=== PATIENT | male | born 1970 | race African-American/Black ===

== ENCOUNTER 2018-03-09 07:34 | Emergency (ER) | payer SELFPAY ==
[~2018-03-09] VITALS: Ht 185.4 cm; Wt 108.9 kg
[2018-03-09] MEDS ORDERED: NS IV 1000 ML 1,000 ML IV ONE (07:45)
[2018-03-09] MEDS ORDERED: raNItidine 50 MG/2 ML INJ (ZANTAC) IV ONE (07:45)
[2018-03-09] MEDS ORDERED: ONDANSETRON 4 MG/2 ML (SDV) Z0FRAN IVP ONE (07:45)
[2018-03-09] MEDS ORDERED: fentaNYL INJECTION 100 MCG/2 ML AMP IVP ONE ×2 (07:45→10:00)
[2018-03-09 08:56] LABS: BASOPHILS % (AUTO) 0 % (0-10); EOSINOPHILS # (AUTO) 0.1 10^3/uL (0.0-0.3); EOSINOPHILS % (AUTO) 2 % (0-10); HEMATOCRIT 41 % (40-54); HEMOGLOBIN 13.5 G/DL (13.3-17.7); LYMPHOCYTES # (AUTO) 0.6 X 10^3 (1.0-4.0); LYMPHOCYTES % (AUTO) 10 % (12-44); MEAN CORPUSCULAR HEMOGLOBIN 30 PG (25-34); MEAN CORPUSCULAR HGB CONC 33 G/DL (32-36); MEAN CORPUSCULAR VOLUME 90 FL (80-99); MEAN PLATELET VOLUME 10.2 FL (7.4-10.4); MONOCYTES # (AUTO) 0.3 X 10^3 (0.0-1.0); MONOCYTES % (AUTO) 5 % (0-12); NEUTROPHILS # (AUTO) 5.3 X 10^3 (1.8-7.8); NEUTROPHILS % (AUTO) 83 % (42-75); PLATELET COUNT 173 10^3/uL (130-400); RED BLOOD COUNT 4.57 10^6/uL (4.35-5.85); WHITE BLOOD COUNT 6.3 10^3/uL (4.3-11.0)
[2018-03-09 09:48] LABS: BUN/CREATININE RATIO 22; CALCIUM 9.1 MG/DL (8.5-10.1); CARBON DIOXIDE 18 MMOL/L (21-32); CHLORIDE 113 MMOL/L (98-107); CREATININE SERUM 0.88 MG/DL (0.60-1.30); GFR ESTIMATED > 60; GLUCOSE 179 MG/DL (70-105); POTASSIUM 4.2 MMOL/L (3.6-5.0); SODIUM 142 MMOL/L (135-145)
[2018-03-09 10:01] LABS: ALANINE AMINOTRANSFERASE 19 U/L (0-55); ALBUMIN 3.9 GM/DL (3.2-4.5); ALKALINE PHOSPHATASE 54 U/L (40-136); BILIRUBIN,TOTAL 0.4 MG/DL (0.1-1.0); LIPASE 5 U/L (8-78); MAGNESIUM 2.5 MG/DL (1.8-2.4); TOTAL PROTEIN 7.5 GM/DL (6.4-8.2)
[2018-03-09] MEDS ORDERED: NS 250 ML (IVPB) BAG IV ONE (10:15)
[2018-03-09] MEDS ORDERED: IOHEXOL 350 MG/ML 100 ML (OMNIPAQUE 350) VIAL IV ONE (10:15)
[2018-03-09 10:37] LABS: BILIRUBIN,URINE NEGATIVE (NEGATIVE); CLARITY,URINE CLEAR; COLOR,URINE YELLOW; GLUCOSE, URINE (UA) 2+ (NEGATIVE); KETONES,URINE NEGATIVE (NEGATIVE); LEUKOCYTE ESTERASE ,URINE NEGATIVE (NEGATIVE); NITRITE,URINE NEGATIVE (NEGATIVE); PH,URINE 8 (5-9); PROTEIN,URINE NEGATIVE (NEGATIVE); UROBILINOGEN,URINE NORMAL (NORMAL)
--- NOTE | 2018-03-09 10:43 | Diagnostic Imaging Report ---
INDICATION: Abdominal tightness with nausea and vomiting. TECHNIQUE: The CT abdomen and pelvis was obtained with IV contrast bolus. COMPARISON: There is no prior study for comparison. FINDINGS: The visualized portions of the lung bases are noted for a small noncalcified pulmonary nodule in the left lower lobe measuring about 6-7 mm. There is no infiltrate, pleural fluid, or free intraperitoneal air. The liver shows no focal lesion. The gallbladder is surgically absent. The spleen, adrenals, and pancreas are normal. The kidneys bilaterally show no hydronephrosis. There is a tiny cyst in the superior pole of the right kidney. There is a cyst in the lower pole of the left kidney measuring about 3.4 cm. There is no retroperitoneal mass or adenopathy. There is no abdominal aortic aneurysm. There is no pelvic mass or free fluid. The visualized bowel loops show no overt obstruction. The appendix appears normal. IMPRESSION: Status post cholecystectomy. The appendix appears unremarkable. There are bilateral renal cysts, left greater than right. There is no sign of bowel obstruction or overt acute inflammatory process in the abdomen. Incidental note is made of a left lower lobe pulmonary nodule measuring about 6-7 mm. I would suggest a followup study in 6 months. Dictated by: Dictated on workstation # [id number]
[2018-03-09 10:49] LABS: RBC,URINE 25-50 /HPF
[2018-03-09 10:50] LABS: BACTERIA,URINE NEGATIVE /HPF; WBC,URINE RARE /HPF
[2018-03-09 10:51] LABS: AMPHETAMINE SCREEN, URINE NEGATIVE (NEGATIVE); BARBITURATE SCREEN URINE NEGATIVE (NEGATIVE); BENZODIAZEPINES SCREEN URINE NEGATIVE (NEGATIVE); CANNABINOID SCREEN, URINE POSITIVE (NEGATIVE); COCAINE SCREEN URINE NEGATIVE (NEGATIVE); METHADONE STAT NEGATIVE (NEGATIVE); METHAMPHETAMINE SCREEN URINE S NEGATIVE (NEGATIVE); OPIATE SCREEN URINE NEGATIVE (NEGATIVE); OXYCODONE STAT NEGATIVE (NEGATIVE); PROPOXYPHENE STAT NEGATIVE (NEGATIVE); TRICYCLIC ANTIDEPRESSANTS SCRE NEGATIVE (NEGATIVE)
--- NOTE | 2018-03-09 10:54 | ED Abdominal Pain ---
General Chief Complaint: Abdominal/GI Problems Stated Complaint: N/V Nursing Triage Note: PT ARRIVED PER EMS, PT CO OF N/V/D SINCE LAST PM AT 2330. PT IS VOMITING UP YELLOW BILE PT CO OF ABD PAIN IN UPPER ABD 810 Sepsis Screen: No Definite Risk Source of Information: Patient Exam Limitations: No Limitations History of Present Illness Date Seen by Provider: Mar 09, 2018 Time Seen by Provider: 07:35 Initial Comments This 47-year-old man presents to emergency room via EMS with complaints of nausea, vomiting, diarrhea, and generalized abdominal pain since 23:00. He is afebrile. He is in town on a work project and staying at a local hotel. He initially denied any drug or alcohol use but later admitted to marijuana within the last week and drinking vish last night. He denies any major health problems. Patient appears somnolent and is not very cooperative with interview and exam. Allergies and Home Medications Allergies Coded Allergies: No Known Drug Allergies (Unverified , 03/09/18) Home Medications Ondansetron 4 Mg Tab.rapdis, 4 MG SL Q4H PRN for NAUSEA/VOMITING-1ST LINE Prescribed by: JOANNA MOSES on 03/09/18 1234 Patient Home Medication List Home Medication List Reviewed: Yes Review of Systems Constitutional: see HPI EENTM: No Symptoms Reported Respiratory: No Symptoms Reported Cardiovascular: No Symptoms Reported Gastrointestinal: See HPI Genitourinary: No Symptoms Reported Musculoskeletal: no symptoms reported Skin: no symptoms reported Psychiatric/Neurological: See HPI Endocrine: No Symptoms Reported Hematologic/Lymphatic: No Symptoms Reported Past Ajuhlnj-Vupmgp-Aupnxl Hx Past Med/Social Hx: Reviewed and Corrections made Patient Social History Alcohol Use: Occasionally Uses Recreational Drug Use: No Smoking Status: Current Everyday Smoker Type Used: Cigarettes Recent Foreign Travel: No Contact w/Someone Who Travel: No Recent Infectious Disease Expo: No Recent Hopitalizations: No Physical Abuse: No Sexual Abuse: No Past Medical History Surgeries: No Respiratory: No Cardiac: No Neurological: No Reproductive Disorders: No Genitourinary: No Gastrointestinal: Yes Gastroesophageal Reflux Musculoskeletal: No Endocrine: No HEENT: No Cancer: No Psychosocial: No Nursing Suicide Risk Score: 0 Integumentary: No Physical Exam Vital Signs Vital Signs - First Documented 03/09/18 07:35 Temp 96.5 Pulse 56 Resp 18 B/P (MAP) 158/101 (120) Pulse Ox 97 Capillary Refill : Less Than 3 Seconds General Appearance: WD/WN, moderate distress HEENT: PERRL/EOMI, normal ENT inspection, other (Mucous membranes somewhat dry) Neck: normal inspection Respiratory: lungs clear, normal breath sounds, no respiratory distress, no accessory muscle use Cardiovascular: regular rate, rhythm, no edema, no murmur Gastrointestinal: soft, abnormal bowel sounds (Decreased bowel sounds); No distended, No guarding; tenderness (Generalized) Extremities: normal inspection, no pedal edema Neurologic/Psychiatric: 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, no motor/sensory deficits, alert, oriented x 3, other (Somnolent, not very cooperative in that he ignores questions and commands) Skin: normal color, warm/dry Progress/Results/Core Measures Results/Orders Lab Results Laboratory Tests Test 03/09/18 08:47 03/09/18 09:10 03/09/18 09:56 Range/Units White Blood Count 6.3 4.3-11.0 10^3/uL Red Blood Count 4.57 4.35-5.85 10^6/uL Hemoglobin 13.5 13.3-17.7 G/DL Hematocrit 41 40-54 % Mean Corpuscular Volume 90 80-99 FL Mean Corpuscular Hemoglobin 30 25-34 PG Mean Corpuscular Hemoglobin Concent 33 32-36 G/DL Red Cell Distribution Width 15.0 H 10.0-14.5 % Platelet Count 173 130-400 10^3/uL Mean Platelet Volume 10.2 7.4-10.4 FL Neutrophils (%) (Auto) 83 H 42-75 % Lymphocytes (%) (Auto) 10 L 12-44 % Monocytes (%) (Auto) 5 0-12 % Eosinophils (%) (Auto) 2 0-10 % Basophils (%) (Auto) 0 0-10 % Neutrophils # (Auto) 5.3 1.8-7.8 X 10^3 Lymphocytes # (Auto) 0.6 L 1.0-4.0 X 10^3 Monocytes # (Auto) 0.3 0.0-1.0 X 10^3 Eosinophils # (Auto) 0.1 0.0-0.3 10^3/uL Basophils # (Auto) 0.0 0.0-0.1 10^3/uL Sodium Level 142 135-145 MMOL/L Potassium Level 4.2 3.6-5.0 MMOL/L Chloride Level 113 H 98-107 MMOL/L Carbon Dioxide Level 18 L 21-32 MMOL/L Anion Gap 11 5-14 MMOL/L Blood Urea Nitrogen 19 H 7-18 MG/DL Creatinine 0.88 0.60-1.30 MG/DL Estimat Glomerular Filtration Rate > 60 BUN/Creatinine Ratio 22 Glucose Level 179 H 70-105 MG/DL Calcium Level 9.1 8.5-10.1 MG/DL Magnesium Level 2.5 H 1.8-2.4 MG/DL Total Bilirubin 0.4 0.1-1.0 MG/DL Aspartate Amino Transf (AST/SGOT) 24 5-34 U/L Alanine Aminotransferase (ALT/SGPT) 19 0-55 U/L Alkaline Phosphatase 54 40-136 U/L Total Protein 7.5 6.4-8.2 GM/DL Albumin 3.9 3.2-4.5 GM/DL Lipase 5 L 8-78 U/L Serum Alcohol < 10 <10 MG/DL Urine Color YELLOW Urine Clarity CLEAR Urine pH 8 5-9 Urine Specific Finger 1.010 L 1.016-1.022 Urine Protein NEGATIVE NEGATIVE Urine Glucose (UA) 2+ H NEGATIVE Urine Ketones NEGATIVE NEGATIVE Urine Nitrite NEGATIVE NEGATIVE Urine Bilirubin NEGATIVE NEGATIVE Urine Urobilinogen NORMAL NORMAL MG/DL Urine Leukocyte Esterase NEGATIVE NEGATIVE Urine RBC (Auto) 4+ H NEGATIVE Urine RBC 25-50 H /HPF Urine WBC RARE /HPF Urine Crystals NONE /LPF Urine Bacteria NEGATIVE /HPF Urine Casts NONE /LPF Urine Mucus NEGATIVE /LPF Urine Culture Indicated NO Urine Opiates Screen NEGATIVE NEGATIVE Urine Oxycodone Screen NEGATIVE NEGATIVE Urine Methadone Screen NEGATIVE NEGATIVE Urine Propoxyphene Screen NEGATIVE NEGATIVE Urine Barbiturates Screen NEGATIVE NEGATIVE Ur Tricyclic Antidepressants Screen NEGATIVE NEGATIVE Urine Phencyclidine Screen NEGATIVE NEGATIVE Urine Amphetamines Screen NEGATIVE NEGATIVE Urine Methamphetamines Screen NEGATIVE NEGATIVE Urine Benzodiazepines Screen NEGATIVE NEGATIVE Urine Cocaine Screen NEGATIVE NEGATIVE Urine Cannabinoids Screen POSITIVE H NEGATIVE My Orders Orders - JOANNA UMANA MD Cbc With Automated Diff (03/09/18 07:45) Comprehensive Metabolic Panel (03/09/18 07:45) Lipase (03/09/18 07:45) Ua Culture If Indicated (03/09/18 07:45) Saline Lock/Iv-Start (03/09/18 07:45) Ns Iv 1000 Ml (Sodium Chloride 0.9%) (03/09/18 07:45) Magnesium (03/09/18 07:45) Ondansetron Injection (Zofran Injectio (03/09/18 07:45) Ranitidine Injection (Zantac Injection) (03/09/18 07:45) Fentanyl Injection (Sublimaze Injection (03/09/18 07:45) Fentanyl Injection (Sublimaze Injection (03/09/18 10:00) Alcohol (03/09/18 09:57) Drug Screen Stat (Urine) (03/09/18 09:57) Ct Abdomen/Pelvis W (03/09/18 09:57) Iohexol Injection (Omnipaque 350 Mg/Ml 1 (03/09/18 10:15) Ns (Ivpb) (Sodium Chloride 0.9%) (03/09/18 10:15) Ketorolac Injection (Toradol Injection) (03/09/18 12:45) Medications Given in ED Current Medications Medications Dose Ordered Sig/Dank Route Start Time Stop Time Status Last Admin Dose Admin Iohexol 100 ml ONCE ONCE IV 03/09/18 10:15 03/09/18 10:16 DC 03/09/18 10:22 100 ML Ketorolac Tromethamine 15 mg ONCE ONCE IVP 03/09/18 12:45 03/09/18 12:46 DC 03/09/18 12:49 15 MG Sodium Chloride 250 ml ONCE ONCE IV 03/09/18 10:15 03/09/18 10:16 DC 03/09/18 10:22 250 ML Vital Signs/I&O 03/09/18 03/09/18 07:35 12:58 Temp 96.5 Pulse 56 56 Resp 18 18 B/P (MAP) 158/101 (120) 142/88 (120) Pulse Ox 97 97 Blood Pressure Mean: 120 Progress Progress Note : Progress Note Patient was treated with fentanyl and Zofran. IV fluids were infused. Labs were unremarkable but patient was still experiencing significant abdominal pain and tenderness. CT scan was performed for further evaluation. No acute pathology was identified. Patient was further treated with Toradol and dismissed home. Patient was notified of incidental findings on CT scan and instructed to follow-up. Diagnostic Imaging Diagonstic Imaging: CT Plain Films/CT/US/NM/MRI: abdomen, pelvis Comments CT abdomen and pelvis viewed by me and report reviewed. See report below: NAME: RASHAWN OROSCO [facility] REC#: [id number] PT STATUS: DEP ER : 1970 PHYSICIAN: JOANNA UMANA MD ADMIT DATE: 03/09/18/ER Signed Date of Exam: 03/09/18 CT ABDOMEN/PELVIS W INDICATION: Abdominal tightness with nausea and vomiting. TECHNIQUE: The CT abdomen and pelvis was obtained with IV contrast bolus. COMPARISON: There is no prior study for comparison. FINDINGS: The visualized portions of the lung bases are noted for a small noncalcified pulmonary nodule in the left lower lobe measuring about 6-7 mm. There is no infiltrate, pleural fluid, or free intraperitoneal air. The liver shows no focal lesion. The gallbladder is surgically absent. The spleen, adrenals, and pancreas are normal. The kidneys bilaterally show no hydronephrosis. There is a tiny cyst in the superior pole of the right kidney. There is a cyst in the lower pole of the left kidney measuring about 3.4 cm. There is no retroperitoneal mass or adenopathy. There is no abdominal aortic aneurysm. There is no pelvic mass or free fluid. The visualized bowel loops show no overt obstruction. The appendix appears normal. IMPRESSION: Status post cholecystectomy. The appendix appears unremarkable. There are bilateral renal cysts, left greater than right. There is no sign of bowel obstruction or overt acute inflammatory process in the abdomen. Incidental note is made of a left lower lobe pulmonary nodule measuring about 6-7 mm. I would suggest a followup study in 6 months. Dictated by: Dictated on workstation # [id number] Dict: 03/09/18 1036 Trans: 03/09/18 1646 Interpreted by: BASIL MARQUEZ MD Electronically signed by: BASIL MARQUEZ MD 03/09/18 1646 Departure Impression Primary Impression: Generalized abdominal pain Additional Impressions: Nausea vomiting and diarrhea Pulmonary nodule Renal cyst Disposition: 01 HOME, SELF-CARE Condition: Improved Departure-Patient Inst. Decision time for Depature: 12:33 Referrals: NO,LOCAL PHYSICIAN (PCP/Family) Primary Care Physician Patient Instructions: Acute Abdomen (Belly Pain), Adult (DC), Single Pulmonary Nodule Add. Discharge Instructions: Drink plenty of clear liquids today. Tomorrow gradually advance your diet with small quantities of bland food as tolerated. Use Zofran dissolved under the tongue every 4 hours as needed for nausea and vomiting. Use Tylenol ( acetaminophen) up to 1000 mg every 6 hours as needed for pain. Return to care if symptoms worsen. Rest today. You may return to work tomorrow if symptoms have improved. There were incidental findings of a pulmonary nodule and a renal cyst on your CT scan. The pulmonary nodule should be reevaluated with a repeat CT scan in about 6 months. Please see your doctor to arrange this. A report of the CT scan has been attached for your convenience. All discharge instructions reviewed with patient and/or family. Voiced understanding. Scripts Ondansetron (Zofran Odt) 4 Mg Tab.rapdis 4 MG SL Q4H PRN for NAUSEA/VOMITING-1ST LINE, #10 TAB Prov: JOANNA UMANA MD 03/09/18 Work/School Note: Work Release Form Date Seen in the Emergency Department: Mar 09, 2018 Return to Work: Mar 10, 2018 Restrictions: No Restrictions JOANNA UMANA MD Mar 09, 2018 10:54
[2018-03-09] MEDS ORDERED: ONDA4TAB8 SL (12:34)
[2018-03-09] MEDS ORDERED: KETOROLAC 30 MG/ML VIAL IVP ONE (12:45)
[2018-03-09 12:58] VITALS: BP 142/88
== END 2018-03-09 12:58 | disposition home or self-care (01) ==
LOC: ER 07:35
DX: R10.84 Generalized abdominal pain (principal); R11.2 Nausea with vomiting, unspecified; R91.1 Solitary pulmonary nodule; N28.1 Cyst of kidney, acquired; K21.9 Gastro-esophageal reflux disease without esophagitis; F17.210 Nicotine dependence, cigarettes, uncomplicated
CPT/HCPCS: 36415; 74177; 80053; 80306; 80320; 81000; 83690; 83735; 85025; 96361; 96374; 96375; 96376

== ENCOUNTER 2018-03-10 12:20 | Emergency (ER) | payer SELFPAY ==
[~2018-03-10] VITALS: Ht 185.4 cm; Wt 108.9 kg
[~2018-03-10 12:20] MED LIST: ONDA4TAB8 SL
[2018-03-10] MEDS ORDERED: HALOPERIDOL 5 MG/ML (HALDOL) AMP IV ONE (12:30)
[2018-03-10] MEDS ORDERED: NS IV 1000 ML 1,000 ML IV SCH (12:30)
--- NOTE | 2018-03-10 12:30 | ED General ---
General Stated Complaint: ABD PAIN Source of Information: Patient Exam Limitations: No Limitations History of Present Illness Date Seen by Provider: Mar 10, 2018 Time Seen by Provider: 12:28 Initial Comments o ER per EMS from a local hotel where he is staying with reports of severe abdominal pain that is diffuse in location nausea and vomiting.he states that he gets these episodes about 2-3 times per year. The only thing that he can think of that helps this is a hot shower with the stream of water hitting him right in the stomach. He was seen here yesterday for similar complaints. 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 He states that he smokes marijuana a couple of times a week. Timing/Duration: 2-3 Days Severity: Moderate Associated Systoms: Nausea/Vomiting Allergies and Home Medications Allergies Coded Allergies: No Known Drug Allergies (Unverified , 03/09/18) Home Medications Ondansetron 4 Mg Tab.rapdis, 4 MG SL Q4H PRN for NAUSEA/VOMITING-1ST LINE Prescribed by: JOANNA MOSES on 03/09/18 1234 Patient Home Medication List Home Medication List Reviewed: Yes Review of Systems Constitutional: see HPI EENTM: see HPI Respiratory: no symptoms reported Cardiovascular: no symptoms reported Gastrointestinal: abdominal pain, nausea, vomiting Genitourinary: no symptoms reported Musculoskeletal: no symptoms reported Skin: no symptoms reported Psychiatric/Neurological: No Symptoms Reported Past Dpidngt-Omybtd-Vtqyav Hx Patient Social History Type Used: Cigarettes Recent Hopitalizations: No Past Medical History Surgeries: No Respiratory: No Cardiac: No Neurological: No Reproductive Disorders: No Genitourinary: No Gastrointestinal: Yes Gastroesophageal Reflux Musculoskeletal: No Endocrine: No HEENT: No Cancer: No Psychosocial: No Integumentary: No Physical Exam Vital Signs Vital Signs - First Documented 03/10/18 12:20 Temp 98.0 Pulse 82 B/P (MAP) 186/122 (143) Pulse Ox 98 O2 Delivery Room Air Capillary Refill : General Appearance: No Apparent Distress, WD/WN, Moderate Distress, Other ( moaning, crying,retching.) Eyes: Bilateral Eye Normal Inspection, Bilateral Eye PERRL, Bilateral Eye EOMI HEENT: PERRL/EOMI, TMs Normal Neck: Full Range of Motion, Normal Inspection Respiratory: Normal Breath Sounds, No Accessory Muscle Use Cardiovascular: Regular Rate, Rhythm, Normal Peripheral Pulses Gastrointestinal: Normal Bowel Sounds, Non Tender, Soft Extremity: Normal Capillary Refill, No Calf Tenderness Neurologic/Psychiatric: Alert, Oriented x3 Skin: Normal Color, Warm/Dry Progress/Results/Core Measures Suspected Sepsis SIRS Temperature: Pulse: Respiratory Rate: Laboratory Tests 03/10/18 12:26: White Blood Count 10.7 Blood Pressure / Mean: Laboratory Tests 03/10/18 12:26: Creatinine 0.98, Platelet Count 194, Total Bilirubin 0.9 Results/Orders Lab Results Laboratory Tests Test 03/10/18 12:26 Range/Units White Blood Count 10.7 4.3-11.0 10^3/uL Red Blood Count 4.45 4.35-5.85 10^6/uL Hemoglobin 13.4 13.3-17.7 G/DL Hematocrit 39 L 40-54 % Mean Corpuscular Volume 88 80-99 FL Mean Corpuscular Hemoglobin 30 25-34 PG Mean Corpuscular Hemoglobin Concent 34 32-36 G/DL Red Cell Distribution Width 14.8 H 10.0-14.5 % Platelet Count 194 130-400 10^3/uL Mean Platelet Volume 9.8 7.4-10.4 FL Neutrophils (%) (Auto) 83 H 42-75 % Lymphocytes (%) (Auto) 11 L 12-44 % Monocytes (%) (Auto) 7 0-12 % Eosinophils (%) (Auto) 0 0-10 % Basophils (%) (Auto) 0 0-10 % Neutrophils # (Auto) 8.9 H 1.8-7.8 X 10^3 Lymphocytes # (Auto) 1.1 1.0-4.0 X 10^3 Monocytes # (Auto) 0.7 0.0-1.0 X 10^3 Eosinophils # (Auto) 0.0 0.0-0.3 10^3/uL Basophils # (Auto) 0.0 0.0-0.1 10^3/uL Sodium Level 140 135-145 MMOL/L Potassium Level 3.6 3.6-5.0 MMOL/L Chloride Level 104 98-107 MMOL/L Carbon Dioxide Level 23 21-32 MMOL/L Anion Gap 13 5-14 MMOL/L Blood Urea Nitrogen 17 7-18 MG/DL Creatinine 0.98 0.60-1.30 MG/DL Estimat Glomerular Filtration Rate > 60 BUN/Creatinine Ratio 17 Glucose Level 136 H 70-105 MG/DL Calcium Level 9.2 8.5-10.1 MG/DL Total Bilirubin 0.9 0.1-1.0 MG/DL Aspartate Amino Transf (AST/SGOT) 14 5-34 U/L Alanine Aminotransferase (ALT/SGPT) 16 0-55 U/L Alkaline Phosphatase 49 40-136 U/L Total Protein 7.4 6.4-8.2 GM/DL Albumin 4.2 3.2-4.5 GM/DL Lipase 7 L 8-78 U/L My Orders Orders - YUMIKO HA APRN Cbc With Automated Diff (03/10/18 12:27) Comprehensive Metabolic Panel (03/10/18 12:27) Ua Culture If Indicated (03/10/18 12:27) Drug Screen Urine Cl(Send Out) (03/10/18 12:27) Lipase (03/10/18 12:27) Iv Heplock-Insert (Order) (03/10/18 12:27) Ns Iv 1000 Ml (Sodium Chloride 0.9%) (03/10/18 12:30) Haloperidol Injection (Haldol Injectio (03/10/18 12:30) Drug Screen Stat (Urine) (03/10/18 13:07) Medications Given in ED Current Medications Medications Dose Ordered Sig/Dank Route Start Time Stop Time Status Last Admin Dose Admin Haloperidol Lactate 5 mg ONCE ONCE IV 03/10/18 12:30 03/10/18 12:31 DC 03/10/18 12:35 5 MG Vital Signs/I&O 03/10/18 12:20 Temp 98.0 Pulse 82 B/P (MAP) 186/122 (143) Pulse Ox 98 O2 Delivery Room Air Capillary Refill : Departure Communication (Admissions) 1321-resting quietly in bed, arousable to verbal stimuli. States his nausea and pain have subsided, he states "now i just feel weird and dizzy" . Impression Primary Impression: Cannabinoid hyperemesis syndrome Disposition: HOME, SELF-CARE Condition: Stable Departure-Patient Inst. Decision time for Depature: 13:09 Referrals: NO,LOCAL PHYSICIAN (PCP/Family) Primary Care Physician Patient Instructions: No Instuctions Given Add. Discharge Instructions: 1. For these episodes to stop, you must cease your marijuana use. Follow-up with your doctor next week 2. . Follow-up with your regular doctor next week. Work/School Note: Work Release Form Date Seen in the Emergency Department: Mar 10, 2018 Return to Work: Mar 11, 2018 YUMIKO HA APRN Mar 10, 2018 12:30
[2018-03-10 12:36] LABS: BASOPHILS % (AUTO) 0 % (0-10); EOSINOPHILS % (AUTO) 0 % (0-10); HEMATOCRIT 39 % (40-54); HEMOGLOBIN 13.4 G/DL (13.3-17.7); LYMPHOCYTES # (AUTO) 1.1 X 10^3 (1.0-4.0); LYMPHOCYTES % (AUTO) 11 % (12-44); MEAN CORPUSCULAR HEMOGLOBIN 30 PG (25-34); MEAN CORPUSCULAR HGB CONC 34 G/DL (32-36); MEAN CORPUSCULAR VOLUME 88 FL (80-99); MEAN PLATELET VOLUME 9.8 FL (7.4-10.4); MONOCYTES # (AUTO) 0.7 X 10^3 (0.0-1.0); MONOCYTES % (AUTO) 7 % (0-12); NEUTROPHILS # (AUTO) 8.9 X 10^3 (1.8-7.8); NEUTROPHILS % (AUTO) 83 % (42-75); PLATELET COUNT 194 10^3/uL (130-400); RED BLOOD COUNT 4.45 10^6/uL (4.35-5.85); RED CELL DISTRIBUTION WIDTH 14.8 % (10.0-14.5); WHITE BLOOD COUNT 10.7 10^3/uL (4.3-11.0)
[2018-03-10 12:54] LABS: ALANINE AMINOTRANSFERASE 16 U/L (0-55); ALBUMIN 4.2 GM/DL (3.2-4.5); ALKALINE PHOSPHATASE 49 U/L (40-136); BILIRUBIN,TOTAL 0.9 MG/DL (0.1-1.0); BUN/CREATININE RATIO 17; CALCIUM 9.2 MG/DL (8.5-10.1); CARBON DIOXIDE 23 MMOL/L (21-32); CHLORIDE 104 MMOL/L (98-107); CREATININE SERUM 0.98 MG/DL (0.60-1.30); GFR ESTIMATED > 60; GLUCOSE 136 MG/DL (70-105); LIPASE 7 U/L (8-78); POTASSIUM 3.6 MMOL/L (3.6-5.0); SODIUM 140 MMOL/L (135-145); TOTAL PROTEIN 7.4 GM/DL (6.4-8.2)
[2018-03-10 13:40] VITALS: BP 106/58
[2018-03-11] MEDS ORDERED: PENI500T PO ×2 (03:27→03:43)
[2018-03-11] MEDS ORDERED: KETO10TA PO ×2 (03:27→03:43)
[2018-03-11] MEDS ORDERED: LIDO15SO2 MM ×2 (03:27→03:43)
[2018-03-11] MEDS ORDERED: PANT40TA2 PO ×2 (03:31→03:43)
[2018-03-11] MEDS ORDERED: ONDA4TAB8 SL (03:43)
== END 2018-03-10 13:47 | disposition home or self-care (01) ==
LOC: EDUNIT# 12:20 → ER 12:21
DX: F12.188 Cannabis abuse with other cannabis-induced disorder (principal); R11.10 Vomiting, unspecified; K21.9 Gastro-esophageal reflux disease without esophagitis
CPT/HCPCS: 36415; 80053; 83690; 85025; 96361; 96374

== ENCOUNTER 2018-03-11 02:56 | Emergency (ER) | payer SELFPAY ==
[~2018-03-11] VITALS: Ht 182.9 cm; Wt 115.2 kg
[2018-03-11] MEDS ORDERED: KETOROLAC 60 MG/2 ML VIAL IM STA (03:17)
[2018-03-11] MEDS ORDERED: LIDOCAINE 1% INJ 20 ML 20 ML VIAL ONE (03:20)
--- NOTE | 2018-03-11 03:23 | ED EENT ---
History of Present Illness General Chief Complaint: Facial Problems Stated Complaint: RT SIDE OF FACE SWOLLEN-NO INJURY Nursing Triage Note: patient reports R sided facial swelling Source: patient History of Present Illness Date Seen by Provider: Mar 11, 2018 Time Seen by Provider: 03:08 Initial Comments PT C/O RIGHT FACIAL SWELLING C/O DENTAL PAIN--CHRONIC PROBLEM, WORSE TODAY PT STATES FACE BEGAN TO SWELL TODAY AFTER HE GOT HOME FROM ER VISIT EARLIER TODAY/YESTERDAY 03/10/18 NO FEVER PT HAS NOT TAKEN ANYTHING FOR PAIN PT DOES NOT HAVE A DENTIST PT STATES HE IS HERE THIS WEEK FOR WORK--IS AN PAINTING WORKER, WORKING AT [employer], AND IS SUPPOSED TO WORK TODAY AND TOMORROW AND THEN HE WILL BE GOING BACK HOME TO PT HAS BEEN HERE 03/09 AND 03/10 FOR ABDOMINAL PAIN WITH NAUSEA/VOMITING--WORK- UP'S NEGATIVE AND WAS DX WITH THC-INDUCED HYPEREMESIS PT WANTING AND WAS GIVEN WORK NOTES AT EACH VISIT. PCP--NONE Allergies and Home Medications Allergies Coded Allergies: No Known Drug Allergies (Unverified , 03/09/18) Home Medications Ketorolac Tromethamine 10 Mg Tablet, 10 MG PO Q6H Prescribed by: LUCIAN BYRNES on 03/11/18342 Lidocaine HCl 15 Ml Solution, 15 ML MM Q 1-2 HOURS Prescribed by: LUCIAN BYRNES on 03/11/18342 Ondansetron 4 Mg Tab.rapdis, 4 MG SL Q4H PRN for NAUSEA/VOMITING-1ST LINE Prescribed by: LUCIAN BYRNES on 03/11/18342 Pantoprazole Sodium 40 Mg Tablet.dr, 40 MG PO DAILY Prescribed by: LUCIAN BYRNES on 03/11/18342 Penicillin V Potassium 500 Mg Tablet, 500 MG PO QID Prescribed by: LUCIAN BYRNES on 03/11/18342 Patient Home Medication List Home Medication List Reviewed: Yes Review of Systems Constitutional: No fever Eyes: No Symptoms Reported Ears: No Symptoms Reported Nose: no symptoms reported Mouth: see HPI Throat: no symptoms reported Gastrointestinal: see HPI Musculoskeletal: no symptoms reported Skin: no symptoms reported Neurological: No Symptoms Reported Hematologic/Lymphatic: No Symptoms Reported Immunological/Allergic: no symptoms reported Past Udhhfhm-Rclmpx-Ovepkw Hx Patient Social History Alcohol Use: Regular Use ("WEEKENDS") Recreational Drug Use: Yes (THC) Drug of Choice: THC Smoking Status: Current Everyday Smoker (2-3 CIGARS/DAY) Type Used: Cigars Recent Foreign Travel: No Contact w/Someone Who Travel: No Recent Infectious Disease Expo: No Recent Hopitalizations: No Physical Abuse: No Sexual Abuse: No Past Medical History Surgeries: Yes (UVULA REMOVED; RIGHT KNEE SCOPE/ACL REPAIR) Gallbladder, Orthopedic Respiratory: No Cardiac: No Neurological: No Reproductive Disorders: No Genitourinary: No Gastrointestinal: Yes (SELF-DX OF GERD. THC-RELATED HYPEREMESIS AND ABDOMINAL PAIN ; S/P ALEJANDRA) Gastroesophageal Reflux, Gall Bladder Disease Musculoskeletal: No Endocrine: No HEENT: Yes (DENTAL PROBLEMS) Cancer: No Psychosocial: No Nursing Suicide Risk Score: 0 Integumentary: No Physical Exam Vital Signs Vital Signs - First Documented 03/11/18 03:09 Temp 98.2 Pulse 62 Resp 18 B/P (MAP) 133/86 (102) Pulse Ox 99 General Appearance: WD/WN, no apparent distress Eyes: bilateral eye normal inspection, bilateral eye PERRL, bilateral eye EOMI Ears: bilateral ear auricle normal, bilateral ear canal normal, bilateral ear TM normal Nose: normal inspection Mouth/Throat: pharynx normal, dental tenderness; No mandibular swelling; maxillary swelling; No trismus; other (RIGHT UPPER FIRST MOLAR WITH CARIES AND MILD TO MODERATE SURROUNDING GUM SWELLING AND ERYTHEMA. MILD RIGHT CHEEK/ MAXILLARY SWELLING AND TENDERNESS. ) Neck: non-tender, full range of motion, supple, normal inspection Cardiovascular: regular rate, rhythm, no murmur Respiratory: normal breath sounds Neurologic/Psychiatric: management expert II-XII nml as tested, no motor/sensory deficits, alert, normal mood/affect, oriented x 3 Skin: normal color, warm/dry, tattoos/piercings (EXTENSIVE TATTOOS) Progress/Results/Core Measures Results/Orders My Orders Orders - LUCIAN BYRNES DO Ketorolac Injection (Toradol Injection) (03/11/18 03:17) Ceftriaxone Injection (Rocephin Injectio (03/11/18 03:30) Lidocaine 1% Inj 50 Ml (Xylocaine 1% Inj (03/11/18 03:30) Lidocaine 1% Inj 20 Ml (Xylocaine 1% Inj (03/11/18 03:20) Medications Given in ED Current Medications Medications Dose Ordered Sig/Dank Route Start Time Stop Time Status Last Admin Dose Admin Ceftriaxone Sodium 1,000 mg ONCE ONCE IM 03/11/18 03:30 03/11/18 03:31 DC 03/11/18 03:30 1,000 MG Lidocaine HCl 20 ml STK-MED ONCE .ROUTE 03/11/18 03:20 03/11/18 03:22 DC 03/11/18 03:30 2.1 ML Vital Signs/I&O 03/11/18 03/11/18 03:09 03:46 Temp 98.2 98.2 Pulse 62 62 Resp 18 18 B/P (MAP) 133/86 (102) 133/86 (102) Pulse Ox 99 99 Blood Pressure Mean: 102 Departure Impression Primary Impression: DENTAL CARIES WITH ABSCESS/CELLULITIS Disposition: HOME, SELF-CARE Condition: Stable Departure-Patient Inst. Referrals: NO,LOCAL PHYSICIAN (PCP/Family) Primary Care Physician Patient Instructions: Cellulitis (Skin Infection), Adult (DC), Tooth Abscess ( DC), Tooth Decay, Adult (DC) Add. Discharge Instructions: LOTS OF CLEAR LIQUIDS SOFT FOODS FOLLOW UP WITH DENTIST OF CHOICE IN 2-3 DAYS FOR FURTHER CARE--CALL TODAY TO SCHEDULE APPOINTMENT All discharge instructions reviewed with patient and/or family. Voiced understanding. Scripts Pantoprazole Sodium (Protonix) 40 Mg Tablet.dr 40 MG PO DAILY, #15 TAB Prov: LUCIAN BYRNES DO 03/11/18 Ketorolac Tromethamine (Ketorolac Tromethamine) 10 Mg Tablet 10 MG PO Q6H for Pain, #15 TAB Prov: LUCIAN BYRNES DO 03/11/18 Lidocaine HCl (Lidocaine HCl Viscous) 15 Ml Solution 15 ML MM Q 1-2 HOURS for Pain, #100 ML Prov: LUCIAN BYRNES DO 03/11/18 Penicillin V Potassium (Penicillin V Potassium) 500 Mg Tablet 500 MG PO QID for FOR INFECTION, #40 TAB Prov: LUCIAN BYRNES DO 03/11/18 Ondansetron (Zofran Odt) 4 Mg Tab.rapdis 4 MG SL Q4H PRN for NAUSEA/VOMITING-1ST LINE, #10 TAB Prov: LUCIAN BYRNES DO 03/11/18 LUCIAN BYRNES DO Mar 11, 2018 03:23
[2018-03-11] MEDS ORDERED: PENI500T PO ×2 (03:27→03:43)
[2018-03-11] MEDS ORDERED: LIDO15SO2 MM ×2 (03:27→03:43)
[2018-03-11] MEDS ORDERED: KETO10TA PO ×2 (03:27→03:43)
[2018-03-11] MEDS ORDERED: cefTRIAXone 1 GM (ROCEPHIN) VIAL IM ONE (03:30)
[2018-03-11] MEDS ORDERED: LIDOCAINE 1% INJ 50 ML (XYLOCAINE) VIAL IJ ONE (03:30)
[2018-03-11] MEDS ORDERED: PANT40TA2 PO ×2 (03:31→03:43)
[2018-03-11] MEDS ORDERED: ONDA4TAB8 SL (03:43)
[2018-03-11 03:46] VITALS: BP 133/86
== END 2018-03-11 03:46 | disposition home or self-care (01) ==
LOC: EDUNIT# 02:56 → ER 03:02
DX: K02.9 Dental caries, unspecified (principal); K04.7 Periapical abscess without sinus; K12.2 Cellulitis and abscess of mouth; K21.9 Gastro-esophageal reflux disease without esophagitis; F12.10 Cannabis abuse, uncomplicated; F17.210 Nicotine dependence, cigarettes, uncomplicated; Z87.19 Personal history of other diseases of the digestive system
CPT/HCPCS: 96372; 99284